=== PATIENT | female | born 1995 | race African-American/Black ===

== ENCOUNTER 2016-10-07 19:11 | Emergency (ER) | payer OTHER ==
[~2016-10-07] VITALS: Ht 154.9 cm; Wt 71.7 kg
[~2016-10-07 19:11] MED LIST: BACTRIM DS 8001 TAB; BACTRIM DS TAB1 EACH PO; BACTROBAN OINT.15 GM TOP; BENTYL10 M1 PO; BENTYL10 MG PO; BENTYL20 M1 PO; CARAFATE1 GM/10 ML PO; CIPRO 500MG TA500 MG PO; DEPO-PROVE150 MG/1 M IM; DEPO-PROVER150 MG/ML IM; ENDOCET 325 MG-1 TA1 PO; HYDROXYZINE HCL25 MG; IBUPROFEN800 M1 PO; LEVSIN0.125 M1 PO; MOBIC15 M1 PO; OXYCODONE HCL5 M1 PO; PEPCID40 MG PO; PERCOCET 325 MG1 TA2 PO; PERCOCET 5-3251 EACH PO; PRILOSEC 20MG C20 MG PO; PROTONIX 20MG T20 MG PO; REGLAN10 MG PO; SERTRALINE HYDR50 MG; SINGULAIR10 MG PO; VICODIN 5-3001 EACH PO; ZOFRAN 4 MG TABL4 MG PO; ZOFRAN ODT4 M1 PO; ZOFRAN ODT4 M1 SL; ZOFRAN4 M1 PO; ZOFRAN4 M1 SL; ZOVIRAX400 MG
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
[2016-10-07 20:36] LABS: ABSOLUTE BASOPHIL COUNT 0.1 /CUMM (0.0-0.2); ABSOLUTE EOSINOPHIL COUNT 0.1 /CUMM (0.0-0.7); ABSOLUTE GRANULOCYTE CT 9.3 /CUMM (1.4-6.5); ABSOLUTE LYMPH COUNT 1.6 /CUMM (1.2-3.4); ABSOLUTE MONOCYTE COUNT 0.5 /CUMM (0.10-0.60); BASOPHIL % 0.5 % (0.0-2.0); EOSINOPHIL % 0.5 % (0-5); GRANULOCYTE % 80.4 % (42.2-75.2); HEMATOCRIT 36.7 % (37-47); MEAN CORPUSCULAR HGB 28.3 PG (27.0-31.0); MEAN CORPUSCULAR HGB CONC 33.9 G/DL (33.0-37.0); MEAN CORPUSCULAR VOLUME 83.4 FL (81.0-99.0); MEAN PLATELET VOLUME 8.4 FL (7.4-10.4); PLATELET COUNT 258 /CUMM (130-400); RBC DISTRIBUTION WIDTH 13.5 % (11.5-14.5); WHITE BLOOD CELL COUNT 11.6 /CUMM (4.8-10.8)
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
[2016-10-07 22:57] VITALS: BP 116/71
[2016-10-07] MEDS ORDERED: PERCOCET 5-3251 EACH PO (22:59)
[2016-10-07] MEDS ORDERED: CYCLOBENZAPRINE10 M1 PO (22:59)
== END 2016-10-07 23:08 ==
LOC: ERH 19:11
PROVIDERS: Emergency Medicine
DX: S16.1XXA Strain of muscle, fascia and tendon at neck level, initial encounter (principal); M54.9 Dorsalgia, unspecified; R10.30 Lower abdominal pain, unspecified; V49.40XA Driver injured in collision with unspecified motor vehicles in traffic accident, initial encounter
CPT/HCPCS: 74177; 81003; 93005; 93010; 96361; 96374; 96375; 96376; J1885

== ENCOUNTER 2016-10-09 21:01 | Emergency (ER) | payer OTHER ==
[~2016-10-09 21:01] MED LIST changes: +CYCLOBENZAPRINE10 M1 PO
[2016-10-09 21:21] VITALS: BP 122/81
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
[2016-10-09] MEDS ORDERED: MOBIC15 M1 PO (21:49)
== END 2016-10-09 21:56 ==
LOC: ERH 21:01
DX: S16.1XXA Strain of muscle, fascia and tendon at neck level, initial encounter (principal); R07.9 Chest pain, unspecified; V49.40XA Driver injured in collision with unspecified motor vehicles in traffic accident, initial encounter
CPT/HCPCS: 93005; 93010; 96372; J1885

== ENCOUNTER 2016-10-17 19:40 | Emergency (ER) | payer OTHER ==
[2016-10-18] MEDS ORDERED: PERCOCET 5-3251 EACH PO ×2 (15:18→15:53)
[2016-10-18] MEDS ORDERED: ATIVAN0.5 M1 PO ×2 (15:18→15:53)
[2016-10-18] MEDS ORDERED: INDOMETHACIN50 M1 PO ×2 (15:18→15:50)
== END 2016-10-17 20:02 | disposition admitted as inpatient to this hospital (09) ==
LOC: ERH 19:40
DX: R51 Headache (principal); M54.2 Cervicalgia; M79.606 Pain in leg, unspecified; V89.2XXD Person injured in unspecified motor-vehicle accident, traffic, subsequent encounter

== ENCOUNTER 2016-10-18 12:52 | Emergency (ER) | payer OTHER ==
[~2016-10-18] VITALS: Ht 154.9 cm; Wt 71.7 kg
[2016-10-18 12:56] VITALS: BP 114/76
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
[2016-10-18] MEDS ORDERED: ATIVAN0.5 M1 PO ×2 (15:18→15:53)
[2016-10-18] MEDS ORDERED: PERCOCET 5-3251 EACH PO ×2 (15:18→15:53)
[2016-10-18] MEDS ORDERED: INDOMETHACIN50 M1 PO ×2 (15:18→15:50)
== END 2016-10-18 16:00 ==
LOC: ERH 12:52
DX: G44.209 Tension-type headache, unspecified, not intractable (principal)
CPT/HCPCS: 96372; J1885

== ENCOUNTER 2016-11-13 15:51 | Emergency (ER) | payer OTHER ==
[~2016-11-13] VITALS: Ht 154.9 cm; Wt 72.6 kg
[~2016-11-13 15:51] MED LIST changes: +ATIVAN0.5 M1 PO; +INDOMETHACIN50 M1 PO
--- NOTE | 2016-11-13 16:20 | ED GI/GU/ABDOMINAL COMPLAINT ---
History of Present Illness General Chief Complaint: Abdominal Pain/Flank Pain Stated Complaint: ABD PAIN Source: patient, old records Exam Limitations: no limitations Vital Signs & Intake/Output Vital Signs & Intake/Output Vital Signs Date Time Temp Pulse Resp B/P Pulse O2 O2 Flow FiO2 Ox Delivery Rate 11/13 1713 98.6 86 18 124/84 98 Room Air 11/13 1556 98.5 107 20 122/81 98 Room Air Room Air Allergies Coded Allergies: Penicillins (Severe, ANAPHALACTIC 10/18/16) Reconcile Medications Ciprofloxacin HCl (Cipro) 250 MG TABLET 1 TAB PO BID PRN UTI Cyclobenzaprine HCl 10 MG TABLET 1 TAB PO Q8P PAIN OR SPASM Medroxyprogesterone Acetate (Depo-Provera) 150 MG/1 ML VIAL 150 MG IM Q3M CONTROL (Reported) Ondansetron (Zofran Odt) 4 MG TAB.RAPDIS 1 TAB SL TID PRN NAUSEA Tylenol With Codeine (Tylenol With Codeine #3 Tablet) 300 MG-30 MG TABLET 1 TAB PO Q4-6 PRN PRN PAIN Triage Note: PT TO ED WITH C/O NAUSEA AND VOMITING (YESTERDAY) AND BLOOD STOOL, PER PT "I'VE HAD BLOODY STOOL BEFORE A COUPLE OF MONTHS AGO, I NEED A REFERRAL FOR A GI DOCTOR". LAST MENSES: ON DEPOT SHOT Triage Nurses Notes Reviewed? yes ? n Is pt currently ? No HPI: 21-year-old female with history of chronic intermittent abdominal pain nausea vomiting and blood in her stool that started approximately 2 years ago, presents with lower pelvic pain dysuria and urinary frequency. She has no fever no flulike illness. Symptoms have been going on for about 3 days. She has been seen approximately 15 times in last 2 years for similar complaints has had multiple CAT scans. She lives in [place] and she states she frequents [facility] as well. She sees an NAPPER TENDER doctor regularly, most recent visit was 2 months ago for routine checkup, she is not sexually active at this time has no vaginal discharge or abnormal bleeding. She is on the Depo-Provera injection. Her stool is brown. Her symptoms are moderate sharp pain radiating to the right lower back. She does have history of ovarian cysts. (IVAN DE LEON,YOU) Past History Travel History Traveled to [place] past 21 day No Medical History Any Pertinent Medical History? 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 No (YOU VANCE) Review of Systems Review of Systems Constitutional: Reports: see HPI. EENTM: Reports: no symptoms. Respiratory: Reports: no symptoms. Cardiovascular: Reports: no symptoms. GI: Reports: see HPI. Genitourinary: Reports: see HPI. Musculoskeletal: Reports: no symptoms. Skin: Reports: no symptoms. Neurological/Psychological: Reports: no symptoms. Hematologic/Endocrine: Reports: no symptoms. Immunologic/Allergic: Reports: no symptoms. All Other Systems: Reviewed and Negative (YOU VANCE) Physical Exam Physical Exam Respiratory: normal breath sounds, chest non-tender, no respiratory distress Cardiovascular: regular rate/rhythm Gastrointestinal: normal bowel sounds, soft, mild tenderness R lower pelvic region. Comments: Well-developed well-nourished no apparent distress. HEENT: Atraumatic, extraocular motion intact Neck: Supple, no lymphadenopathy Back: Nontender Respiratory: No respiratory distress Extremities: No edema, full range of motion Neuro: Alert and oriented x3 Psych: Mood affect normal, normal memory normal judgment. Skin: Warm and dry, no rash on exposed skin Core Measures ACS in differential dx? No Severe Sepsis Present: No Septic Shock Present: No (YOU VANCE) Progress Differential Diagnosis: AAA, AMI, appendicitis, biliary colic, bowel obstruction , colon cancer, cholecystitis, diverticulitis, ectopic , endometritis, esophageal varices, gastritis, hepatitis, hernia, hemorrhoids, ischemic bowel, inflamm bowel dis, intrauterine , kidney stone, Ciara-Deanna tear, ovarian cyst, ovarian torsion, pancreatitis, PID/cervicitis, peptic ulcer, PUD/ GERD, perforated viscous, SBO, threatened AB, UTI/pyelo Plan of Care: Orders Procedure Date/time Status Add-on Test (ER Only) 11/13 1652 Active CULTURE,URINE 11/13 161 Active URINE 11/13 1609 Complete URINALYSIS 11/13 1609 Complete Laboratory Tests 11/13/16 1610: Urine Color YEL, Urine Clarity HAZY H, Urine pH 6.0, Ur Specific [place] >= 1.030, Urine Protein TRACE H, Urine Ketones NEG, Urine Nitrite NEG, Urine Bilirubin NEG, Urine Urobilinogen 0.2, Ur Leukocyte Esterase MOD H, Ur Microscopic SEDIMENT EXAMINED, Urine RBC 10-15 H, Urine WBC 3-5 H, Ur Epithelial Cells MANY H, Urine Hemoglobin TRACE-INTACT, Urine Glucose NEG, Urine Test NEGATIVE Microbiology 11/13 1614 URINE ROUT: Urine Culture - RECD Initial ED EKG: none Comments: . is negative questionable mild urinary tract infection, culture sent. I do not feel as though patient requires another CT scan as she has had many in the past between here and other hospitals. She should follow up with GI for chronic abdominal pain. I reviewed her CT FURNACE COOLER and she has had multiple narcotic prescriptions from multiple providers over the last several months using multiple pharmacies. She is requesting Percocet for her pain, I discussed with her that is not appropriate to give her Percocet for urinary tract infection or chronic abdominal pain as it may make her chronic abdominal pain worse. Will try Tylenol with codeine and recommend follow-up with GI. (YOU VANCE) Departure Departure Disposition: HOME OR SELF CARE Condition: Stable Clinical Impression Primary Impression: UTI (urinary tract infection) Qualifiers: Urinary tract infection type: acute cystitis Hematuria presence: with hematuria Qualified Code: N30.01 - Acute cystitis with hematuria Secondary Impressions: Chronic abdominal pain Referrals: AURA KUO,LASHON Fagan PATIENT HAS NO PRIMARY CARE DR (PCP/Family) Additional Instructions: Take antibiotics as directed. Take Motrin and Tylenol for fever and pain. Return with worsening fever, flulike illness, nausea vomiting or back pain. Return if you are unable to keep fluids down. Please follow up with funds development director for your chronic abdominal pain Departure Forms: Customer Survey General Discharge Information Prescriptions: Current Visit Scripts Ondansetron (Zofran Odt) 1 TAB SL TID PRN NAUSEA #15 TAB Ciprofloxacin HCl (Cipro) 1 TAB PO BID PRN UTI #6 TAB Tylenol With Codeine (Tylenol With Codeine #3 Tablet) 1 TAB PO Q4-6 PRN PRN PAIN #10 TAB (IVAN DE LEON,YOU) PA/PATENT LEGAL ASSISTANT Co-Sign Statement Statement: ED Attending supervision documentation- [] I saw and evaluated the patient. I have also reviewed all the pertinent lab results and diagnostic results. I agree with the findings and the plan of care as documented in the PA's/PATENT LEGAL ASSISTANT's documentation. [X] I have reviewed the ED Record and agree with the PA's/PATENT LEGAL ASSISTANT's documentation. [] Additions or exceptions (if any) to the PAs/PATENT LEGAL ASSISTANT's note and plan are summarized below: [] (AYESHA MIXON DO
[2016-11-13] MEDS ORDERED: CIPRO250 M1 PO (17:06)
[2016-11-13] MEDS ORDERED: TYLENOL WITH C1 EACH PO (17:06)
[2016-11-13] MEDS ORDERED: ZOFRAN ODT4 M1 SL (17:06)
[2016-11-13 17:13] VITALS: BP 124/84
== END 2016-11-13 17:14 ==
LOC: ERH 15:51
DX: N39.0 Urinary tract infection, site not specified (principal)
CPT/HCPCS: 81001; 81025; 87086; J3101

== ENCOUNTER 2017-03-10 20:39 | Emergency (ER) | payer OTHER ==
[~2017-03-10] VITALS: Ht 154.9 cm; Wt 71.2 kg
[~2017-03-10 20:39] MED LIST changes: +CIPRO250 M1 PO; +TYLENOL WITH C1 EACH PO
[2017-03-10 20:55] VITALS: BP 106/71
[2017-03-10 21:14] LABS: ABSOLUTE BASOPHIL COUNT 0 /CUMM (0.0-0.2); ABSOLUTE EOSINOPHIL COUNT 0.1 /CUMM (0.0-0.7); ABSOLUTE GRANULOCYTE CT 5.2 /CUMM (1.4-6.5); ABSOLUTE LYMPH COUNT 2.2 /CUMM (1.2-3.4); ABSOLUTE MONOCYTE COUNT 0.5 /CUMM (0.10-0.60); BASOPHIL % 0.4 % (0.0-2.0); EOSINOPHIL % 1.4 % (0-5); GRANULOCYTE % 64.2 % (42.2-75.2); HEMATOCRIT 37.8 % (37-47); MEAN CORPUSCULAR HGB 27.7 PG (27.0-31.0); MEAN CORPUSCULAR HGB CONC 32.9 G/DL (33.0-37.0); MEAN CORPUSCULAR VOLUME 84.3 FL (81.0-99.0); MEAN PLATELET VOLUME 8.6 FL (7.4-10.4); PLATELET COUNT 233 /CUMM (130-400); RBC DISTRIBUTION WIDTH 13.5 % (11.5-14.5); RED BLOOD CELL CT 4.49 /CUMM (4.20-5.40); WHITE BLOOD CELL COUNT 8.1 /CUMM (4.8-10.8)
[2017-03-10] MEDS ORDERED: MOBIC15 M1 PO (21:38)
--- NOTE | 2017-03-10 21:39 | ED GI/GU/ABDOMINAL COMPLAINT ---
History of Present Illness General Chief Complaint: Abdominal Pain/Flank Pain Stated Complaint: ABDOMINAL PAIN Source: patient Exam Limitations: no limitations Vital Signs & Intake/Output Vital Signs & Intake/Output Vital Signs Date Time Temp Pulse Resp B/P B/P Pulse O2 O2 Flow FiO2 Mean Ox Delivery Rate 03/103 99 Room Air 03/10 2055 97.7 98 22 106/71 98 Allergies Coded Allergies: Penicillins (Severe, ANAPHALACTIC 10/18/16) Reconcile Medications Ciprofloxacin HCl (Cipro) 250 MG TABLET 1 TAB PO BID PRN UTI Cyclobenzaprine HCl 10 MG TABLET 1 TAB PO Q8P PAIN OR SPASM Medroxyprogesterone Acetate (Depo-Provera) 150 MG/1 ML VIAL 150 MG IM Q3M CONTROL (Reported) Meloxicam (Mobic) 15 MG TABLET 1 TAB PO DAILY PAIN Ondansetron (Zofran Odt) 4 MG TAB.RAPDIS 1 TAB SL TID PRN NAUSEA Tylenol With Codeine (Tylenol With Codeine #3 Tablet) 300 MG-30 MG TABLET 1 TAB PO Q4-6 PRN PRN PAIN Triage Note: PER PT ON DEPO STARTED BLEEDING ON THURSDAY WITH LARGE CLOTS NOW BROWISH LIQUID WITH CLOTS. Triage Nurses Notes Reviewed? yes ? n Is pt currently ? No Onset: Abrupt Duration: day(s): (3), constant, continues in ED Timing: recent history Quality/Severity: cramping No Modifying Factors: none HPI: 21-year-old female comes into the emergency room with complaints of lower abdominal cramping and vaginal bleeding for the past 3 days. Patient is on the Depo-Provera shot and reports that she normally does not get up period . Some lower abdominal cramping. Some passages of clots. Some associated nausea vomiting at times. Denies any fever. Denies any other associated symptoms. (SAV FRIAS) Past History Travel History Traveled to [place] past 21 day No Medical History Any Pertinent Medical History? 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 No (SAV FRIAS) Review of Systems Review of Systems Constitutional: Reports: no symptoms. EENTM: Reports: no symptoms. Respiratory: Reports: no symptoms. Cardiovascular: Reports: no symptoms. GI: Reports: see HPI. Genitourinary: Reports: see HPI. Musculoskeletal: Reports: no symptoms. Skin: Reports: no symptoms. Neurological/Psychological: Reports: no symptoms. Hematologic/Endocrine: Reports: see HPI. Immunologic/Allergic: Reports: no symptoms. All Other Systems: Reviewed and Negative (SAV FRIAS) Physical Exam Physical Exam General Appearance: well developed/nourished, no apparent distress, alert Head: atraumatic Eyes: Bilateral: normal appearance. Ears, Nose, Throat, Mouth: hearing grossly normal, moist mucous membrane Neck: normal inspection Respiratory: no respiratory distress Cardiovascular: regular rate/rhythm Gastrointestinal: soft, tenderness (SUPRAPUBIC), NEGATIVE mCbURNEY'S POINT Back: normal inspection Extremities: normal range of motion Neurologic/Psych: awake, alert, oriented x 3 Skin: intact, normal color Core Measures ACS in differential dx? No Severe Sepsis Present: No Septic Shock Present: No (SAV FRIAS) Progress Differential Diagnosis: appendicitis, biliary colic, bowel obstruction, diverticulitis, ectopic , ovarian cyst, ovarian torsion, PID/cervicitis , UTI/pyelo, mensrual cramps Plan of Care: Orders Procedure Date/time Status Add-on Test (ER Only) 03/10 220 Active CULTURE,URINE 03/10 2100 Active URINALYSIS 03/10 2054 Complete LIPASE 03/10 2054 Complete HUMAN BETA HCG SCREEN 03/10 2054 Complete COMPREHENSIVE METABOLIC PANEL 03/10 2054 Complete CBC WITHOUT DIFFERENTIAL 03/10 2054 Complete AMYLASE 03/10 2054 Complete Laboratory Tests 03/10/172105: Anion Gap 10, Estimated GFR > 60, BUN/Creatinine Ratio 8.0, Glucose 84, Calcium 9.6, Total Bilirubin 0.3, AST 30, ALT 54 H, Alkaline Phosphatase 67, Total Protein 7.2, Albumin 4.2, Globulin 3.0, Albumin/Globulin Ratio 1.4, Amylase 35, Lipase 27, Total Beta HCG NEGATIVE, CBC w Diff NO MAN DIFF REQ, RBC 4.49, MCV 84.3, MCH 27.7, RDW 13.5, MPV 8.6, Gran % 64.2, Lymphocytes % 27.6, Monocytes % 6.4, Eosinophils % 1.4, Basophils % 0.4, Absolute Granulocytes 5.2, Absolute Lymphocytes 2.2, Absolute Monocytes 0.5, Absolute Eosinophils 0.1, Absolute Basophils 0, PUBS MCHC 32.9 L 03/10/17 2100: Urine Color YEL, Urine Clarity HAZY H, Urine pH 7.0, Ur Specific [place] 1.010, Urine Protein NEG, Urine Ketones NEG, Urine Nitrite NEG, Urine Bilirubin NEG, Urine Urobilinogen 0.2, Ur Leukocyte Esterase TRACE H, Ur Microscopic SEDIMENT EXAMINED, Urine RBC 3-5, Urine WBC 1-3 H, Ur Epithelial Cells MANY H, Urine Bacteria FEW H, Urine Mucus FEW, Urine Hemoglobin MOD H, Urine Glucose NEG Microbiology 03/10 2100 URINE ROUT: Urine Culture - RECD Pre-Hospital EKG: none Initial ED EKG: none Comments: 03/10/2017 9:58:56 PM Symptoms are most consistent with menstrual cramps. I splinted the patient that they can get intermittent periods on the Depo-Provera. Patient will follow-up with KITCHEN AIDE doctor as needed. Return if any other concerns. No suspicion for appendicitis at this time. Negative McBurney's point and exam. No rebound tenderness. No elevated white count. (SAV FRIAS) Departure Departure Disposition: HOME OR SELF CARE Condition: Stable Clinical Impression Primary Impression: Moderate cramps with menses Secondary Impressions: Abdominal pain Referrals: UNKNOWN (PCP/Family) Additional Instructions: Take Mobic because prescribed. Follow-up with your KITCHEN AIDE doctor as needed. Return if any concerns worsening symptoms. Departure Forms: Customer Survey General Discharge Information Prescriptions: Current Visit Scripts Meloxicam (Mobic) 1 TAB PO DAILY #30 TAB (SAV FRIAS) PA/SAW STRAIGHTENER Co-Sign Statement Statement: ED Attending supervision documentation- [] I saw and evaluated the patient. I have also reviewed all the pertinent lab results and diagnostic results. I agree with the findings and the plan of care as documented in the PA's/SAW STRAIGHTENER's documentation. [X] I have reviewed the ED Record and agree with the PA's/SAW STRAIGHTENER's documentation. [] Additions or exceptions (if any) to the PAs/SAW STRAIGHTENER's note and plan are summarized below: [] (PEPE KUO,YULIYA Joshi)
== END 2017-03-10 22:00 ==
LOC: ERH 20:39
PROVIDERS: Emergency Medicine
DX: N94.6 Dysmenorrhea, unspecified (principal)
CPT/HCPCS: 81001; 87086